=== PATIENT | male | born 1950 | race Caucasian/White ===

== ENCOUNTER 2017-02-21 12:08 | Inpatient (IN) | payer OTHER ==
[~2017-02-21] VITALS: Ht 198.1 cm; Wt 93.5 kg
[~2017-02-21 12:08] MED LIST: GABA-526 PO; METO50TA16 PO
[2017-02-21] MEDS ORDERED: DILTIAZEM 25 MG INJ IV STA (12:27)
[2017-02-21] MEDS ORDERED: DILTIAZEM-D5W 125MG/125ML DRIP 125 ML IV STA (12:27)
[2017-02-21] MEDS ORDERED: SOD CHLORIDE 0.9% 1,000 ML IV STA (12:46)
[2017-02-21] MEDS ORDERED: APIX5TAB PO (13:02)
[2017-02-21] MEDS ORDERED: AMIO200T2 PO (13:03)
[2017-02-21] MEDS ORDERED: ATOR20TA38 PO (13:03)
[2017-02-21] MEDS ORDERED: PANT40TA3 PO (13:03)
--- NOTE | 2017-02-21 13:03 | RADRPT ---
PROCEDURE: XR Chest. CLINICAL INDICATION: Chest pain. TECHNIQUE: Single frontal view. COMPARISON: None. FINDINGS: The lungs are clear. The heart size is normal. There is calcification in the aorta consistent with atherosclerosis. There is no pleural effusion. There is no pneumothorax. IMPRESSION: 1. Atherosclerosis. 2. Clear lungs. RPTAT: QQ .Carlos Conway MD, MD Date Time Electronically viewed and signed by .Carlos Conway MD, MD on 02/21/2017 13:02 .R/
[2017-02-21 13:08] LABS: ADD SCAN DIFF NO
[2017-02-21 13:13] LABS: BASOPHILS % 0.3 % (0.0-2.0); EOSINOPHILS # 0.3 10^3/ul (0.0-0.5); EOSINOPHILS % 2.6 % (0.0-7.0); HEMOGLOBIN 14.9 g/dl (14.0-18.0); LYMPHOCYTES # 2.3 10^3/ul (0.8-2.9); LYMPHOCYTES % 23.3 % (15.0-51.0); MEAN CORPUSCULAR HEMOGLOBIN 29.7 pg (29.0-33.0); MEAN CORPUSCULAR HGB CONC 33.9 g/dl (32.0-37.0); MEAN CORPUSCULAR VOLUME 87.6 fl (82.0-101.0); MONOCYTES % 10.1 % (0.0-11.0); NEUTROPHIL # 6.3 10^3/ul (1.6-7.5); NEUTROPHILS % 63.3 % (39.0-77.0); PLATELET COUNT 306 10^3/UL (140-415); RED BLOOD COUNT 5.02 10^6/ul (4.70-6.10); RED CELL DISTRIBUTION WIDTH 12.3 % (11.5-14.5)
[2017-02-21 13:23] LABS: ALANINE AMINOTRANSFERASE 32 IU/L (13-69); ALBUMIN 4.1 g/dl (3.3-4.9); ALKALINE PHOSPHATASE 75 IU/L (42-121); ANION GAP 12 (8-16); ASPARTATE AMINO TRANSFERASE 26 IU/L (15-46); BILIRUBIN,INDIRECT 0.6 mg/dl (0-1.1); BILIRUBIN,TOTAL 0.6 mg/dl (0.2-1.3); BLOOD UREA NITROGEN 15 mg/dl (7-20); CALCIUM 9.3 mg/dl (8.4-10.2); CARBON DIOXIDE 23 mmol/L (21-31); CHLORIDE 107 mmol/L (97-110); CREATINE KINASE 49 IU/L (23-200); CREATININE 1.05 mg/dl (0.61-1.24); GLUCOSE 132 mg/dl (70-220); POTASSIUM 4.2 mmol/L (3.5-5.1); SODIUM 138 mmol/L (135-144); TOTAL PROTEIN 7.5 g/dl (6.1-8.1)
[2017-02-21 13:31] LABS: INR 1.16; PROTIME 14.8 Sec (12.2-14.2); PT RATIO 1.2
[2017-02-21 13:32] LABS: PARTIAL THROMBOPLASTIN TIME 35.3 Sec (25.0-35.0)
[2017-02-21 13:35] LABS: B-TYPE NATRIURETIC PEPTIDE 190 PG/ML (0-125)
[2017-02-21 13:39] LABS: CK-MB 0.45 ng/ml (0.0-2.4); TROPONIN-I < 0.012 ng/ml (0.00-0.12)
--- NOTE | 2017-02-21 14:19 | ERA ---
ER Documentation Chief Complaint Date/Time DATE: 02/21/17 TIME: 14:12 Chief Complaint PALPITATIONS, SENT IN BY PCP FOR ASSESSMENT, HX OF AFIB HPI This is a 66-year-old male with a recent diagnosis of atrial fibrillation. The patient was discharged yesterday around 3 PM, roughly 24 hours prior to arrival from [facility] where he had stayed for 48 hours to be treated for atrial fibrillation with RVR. The patient had been placed on amiodarone drip during his stay according to his girlfriend. He has been discharged home with Eliquis and amiodarone. Just prior to arrival the patient stated he developed palpitations with no chest pain or pressure that radiated to the neck arm back or jaw. He took his blood pressure and heart rate at home and indicated he was normotensive and tachycardic with a heart rate of roughly 150. He had no associated symptoms of nausea vomiting or diaphoresis. He stated feel slightly lightheaded but denied a headache. He phoned his primary care physician Dr. Cox, instructed to come to the hospital immediately to be further evaluated. The patient denies any shortness of breath at rest or exertion. ROS All systems reviewed and are negative except as per history of present illness. Medications Home Meds Reported Medications Amiodarone Hcl* (Amiodarone Hcl*) 200 Mg Tablet, 400 MG PO BID, #60 TAB 02/21/17 Atorvastatin Calcium* (Atorvastatin Calcium*) 20 Mg Tablet, 20 MG PO QHS, #30 TAB 02/21/17 Pantoprazole* (Protonix*) 40 Mg Tablet.dr, 40 MG PO DAILY, TAB 02/21/17 Apixaban* (Eliquis*) 5 Mg Tablet, 10 MG PO DAILY, TAB 02/21/17 Gabapentin* (Gabapentin*) 600 Mg Tablet, 600 MG PO TID, TAB 09/10/15 Discontinued Reported Medications Metoprolol Succinate* (Toprol XL*) 50 Mg Tab.er.24h, 50 MG PO DAILY, TAB 09/10/15 Allergies Allergies: Uncoded Allergies: NARCOTICS (Allergy, Unknown, NAUSEA FOR 24 HRS, 09/10/15) PMhx/Soc Anesthesia Reaction: No Hx Neurological Disorder: Yes (TIA) Hx Respiratory Disorders: No Hx Psychiatric Problems: No Hx Miscellaneous Medical Probl: No Hx Alcohol Use: No Hx Substance Use: Yes (MJ) Hx Tobacco Use: Yes Smoking Status: Current some day smoker Physical Exam Vitals Vital Signs Date Time Temp Pulse Resp B/P Pulse Ox O2 Delivery O2 Flow Rate FiO2 02/21/17 13:26 Nasal Cannula 2 02/21/17 13:14 56 18 105/84 99 Room Air 02/21/17 12:10 97.9 70 18 118/70 98 Physical Exam Constitutional:Well-developed. Well-nourished. HEENT:Normocephalic. Atraumatic.Pupils were equal round reactive to light. Moist mucous membranes.No tonsillar exudates. Neck: No nuchal rigidity. No lymphadenopathy. No posterior cervical spine tenderness or step-offs. Respiratory: Not using accessory muscles of respiration.Lungs were clear to auscultation bilaterally. No rhonchi. No rales. No wheezing. Cardiovascular: Tachycardic with a irregular rhythm.No murmurs. No rubs were appreciated.S1, S2 normal. Distal pulses are palpable 2+ bilaterally. GI: Abdomen was soft. Nontender. Non Distended. No pulsatile abdominal masses or bruits. No rebound. No guarding. Bowel sounds were present and normal. Muscle skeletal: Full range of motion of both the upper and lower extremities bilaterally.Normal muscle tone.No assymetrical calf tenderness or swelling. Skin: No petechia, no purpura. No lesions on the palms or the soles of the feet. No maculopapular rash. NEURO: Patient was alert, awake, orientated x3.No facial droop. Gait observed and normal with no ataxia.Speech had regular rate and rhythm. No focal neurological deficits. Result Diagram: 02/21/17 1250 02/21/17 1250 Results 24 hrs Laboratory Tests Test 02/21/17 12:50 White Blood Count 10.010^3/ul Red Blood Count 5.0210^6/ul Hemoglobin 14.9g/dl Hematocrit 44.0% Mean Corpuscular Volume 87.6fl Mean Corpuscular Hemoglobin 29.7pg Mean Corpuscular Hemoglobin Concent 33.9g/dl Red Cell Distribution Width 12.3% Platelet Count 88150^3/UL Mean Platelet Volume 10.0fl Neutrophils % 63.3% Lymphocytes % 23.3% Monocytes % 10.1% Eosinophils % 2.6% Basophils % 0.3% Nucleated Red Blood Cells % 0.0/100WBC Neutrophils # 6.310^3/ul Lymphocytes # 2.310^3/ul Monocytes # 1.010^3/ul Eosinophils # 0.310^3/ul Basophils # 0.010^3/ul Nucleated Red Blood Cells # 0.010^3/ul Prothrombin Time 14.8Sec Prothrombin Time Ratio 1.2 INR International Normalized Ratio 1.16 Activated Partial Thromboplast Time 35.3Sec Sodium Level 138mmol/L Potassium Level 4.2mmol/L Chloride Level 107mmol/L Carbon Dioxide Level 23mmol/L Anion Gap 12 Blood Urea Nitrogen 15mg/dl Creatinine 1.05mg/dl Glucose Level 132mg/dl Calcium Level 9.3mg/dl Total Bilirubin 0.6mg/dl Direct Bilirubin 0.00mg/dl Indirect Bilirubin 0.6mg/dl Aspartate Amino Transf (AST/SGOT) 26IU/L Alanine Aminotransferase (ALT/SGPT) 32IU/L Alkaline Phosphatase 75IU/L Creatine Kinase 49IU/L Creatine Kinase Index 0.9 Creatinine Kinase MB (Mass) 0.45ng/ml Troponin I < 0.012ng/ml B-Type Natriuretic Peptide 190PG/ML Total Protein 7.5g/dl Albumin 4.1g/dl Globulin 3.40g/dl Albumin/Globulin Ratio 1.20 Current Medications Medications (Trade) Dose Ordered Sig/Feli Route PRN Reason Start Time Stop Time Status Last Admin Dose Admin Diltiazem HCl 20 mg 20 mg ONCE STAT IV 02/21/17 12:27 02/21/17 12:30 DC 02/21/17 12:50 Diltiazem HCl 125 ml @ 5 mls/hr ONCE STAT IV 02/21/17 12:27 02/22/17 13:26 02/21/17 12:49 Sodium Chloride (NS) 1,000 ml @ 1,000 mls/hr Q1H STAT IV 02/21/17 12:46 02/21/17 13:45 DC 02/21/17 12:51 Ondansetron HCl (Zofran Inj) 4 mg ER BRIDGE PRN IV NAUSEA AND/OR VOMITING 02/21/17 14:30 02/22/17 14:29 Acetaminophen (Tylenol Tab) 650 mg ER BRIDGE PRN PO MILD PAIN/FEVER 02/21/17 14:30 02/22/17 14:29 Departure Condition: Serious TREY ANGULO February 21, 2017 14:19
[2017-02-21] MEDS ORDERED: ONDANSETRON 4 MG INJ IV PRN (14:30)
[2017-02-21] MEDS ORDERED: ACETAMINOPHEN 325 MG TAB PO PRN ×2 (14:30→16:00)
[2017-02-21 15:45] VITALS: BP 116/73; PULSE 53; RESP 18
[2017-02-21 15:55] VITALS: Ht 198.1 cm; Wt 93.5 kg
[2017-02-21] MEDS ORDERED: MAGNESIUM HYDROXIDE 30ML CUP PO PRN (16:00)
[2017-02-21] MEDS ORDERED: ONDANSETRON 4 MG TAB PO PRN (16:00)
[2017-02-21] MEDS ORDERED: BISACODYL (EC) 5 MG TAB PO PRN (16:00)
[2017-02-21] MEDS ORDERED: NACL 0.9% 3 ML SYG IV SCH (16:00)
--- NOTE | 2017-02-21 16:38 | CONS ---
Date/Time of Note Date/Time of Note DATE: 02/21/17 TIME: 16:34 Assessment/Plan Assessment/Plan Additional Assessment/Plan Paroxysmal atrial fibrillation Mitral regurgitation History of CVA Multiple sclerosis -Patient with recurrent atrial fibrillation with rapid ventricular rates, converted back to sinus rhythm with IV Cardizem. Maintain potassium above 4.0 and magnesium above 2.0. Check thyroid function. Restart amiodarone, adjust dosing of Eliquis to 5 mg p.o. twice daily. Check echocardiogram to evaluate mitral valve given history of regurgitation as well as ejection fraction. Continue telemetry monitoring. Consultation Date/Type/Reason Admit Date/Time February 21, 2017 at 14:10 Type of Consultation: cv Reason for Consultation Palpitations Hx of Present Illness This is a 66-year-old male with past medical history of paroxysmal atrial fibrillation, mitral regurgitation, CVA, MS who presents with palpitations. Patient with known history of paroxysmal atrial fibrillation which was controlled with Toprol. He had recent palpitations that were severe. He went to [facility], he was started on amiodarone and had his Eliquis dose adjusted. He was discharged home yesterday but had recurrent palpitations earlier this morning. Palpitations are intermittent. He came to the emergency room and after medications, converted back to sinus rhythm. He has recently been started on amiodarone. He denies any current palpitations, dizziness, chest pain, lightheadedness. 12 point review of systems was performed with all pertinent positives and negatives mentioned above and all else is negative Past Medical History CVA Paroxysmal atrial fibrillation Mitral regurgitation Multiple sclerosis Family History Significant Family History: no pertinent family hx Social History Smoking Status: Never smoker Drug Use: other ( THC use) Exam/Review of Systems Vital Signs Vitals Vital Signs Date Time Temp Pulse Resp B/P Pulse Ox O2 Delivery O2 Flow Rate FiO2 02/21/17 15:45 97.6 53 18 116/73 99 Nasal Cannula 2.0 Exam No apparent distress Constitutional: alert, oriented Head: normocephalic Neck: supple Respiratory: clear to auscultation, normal air movement Cardiovascular: other (S1-S2 heard), regular rate and rhythm, systolic murmur Gastrointestinal: bowel sounds, non-tender, other (No guarding), soft Extremities: other (No edema or cyanosis) Results Result Diagram: 02/21/17 1250 02/21/17 1250 Results 24 hrs Laboratory Tests Test 02/21/17 12:50 White Blood Count 10.0 # Red Blood Count 5.02 Hemoglobin 14.9 Hematocrit 44.0 Mean Corpuscular Volume 87.6 Mean Corpuscular Hemoglobin 29.7 Mean Corpuscular Hemoglobin Concent 33.9 Red Cell Distribution Width 12.3 Platelet Count 306 Mean Platelet Volume 10.0 # Neutrophils % 63.3 Lymphocytes % 23.3 Monocytes % 10.1 Eosinophils % 2.6 Basophils % 0.3 Nucleated Red Blood Cells % 0.0 Neutrophils # 6.3 Lymphocytes # 2.3 Monocytes # 1.0 H Eosinophils # 0.3 Basophils # 0.0 Nucleated Red Blood Cells # 0.0 Prothrombin Time 14.8 H Prothrombin Time Ratio 1.2 INR International Normalized Ratio 1.16 Activated Partial Thromboplast Time 35.3 H Sodium Level 138 Potassium Level 4.2 Chloride Level 107 Carbon Dioxide Level 23 Anion Gap 12 Blood Urea Nitrogen 15 Creatinine 1.05 Glucose Level 132 Calcium Level 9.3 Total Bilirubin 0.6 Direct Bilirubin 0.00 Indirect Bilirubin 0.6 Aspartate Amino Transf (AST/SGOT) 26 Alanine Aminotransferase (ALT/SGPT) 32 Alkaline Phosphatase 75 Creatine Kinase 49 Creatine Kinase Index 0.9 Creatinine Kinase MB (Mass) 0.45 Troponin I < 0.012 B-Type Natriuretic Peptide 190 H Total Protein 7.5 Albumin 4.1 Globulin 3.40 H Albumin/Globulin Ratio 1.20 Medications Medications Current Medications Ondansetron HCl (Zofran Tab) 4 mg Q6H PRN PO NAUSEA AND/OR VOMITING; Start 02/21 at 16:00 Acetaminophen (Tylenol Tab) 650 mg Q6H PRN PO PAIN LEVEL 1-3 OR FEVER; Start at 16:00 Magnesium Hydroxide (Milk Of Mag) 30 ml DAILY PRN PO CONSTIPATION; Start at 16:00 Bisacodyl (Dulcolax) 5 mg DAILY PRN PO CONSTIPATION; Start 02/21/17 at 16:00 Amiodarone HCl (Cordarone) 400 mg BID PO ; Start 02/21/17 at 21:00 Apixaban (Eliquis) 10 mg DAILY PO ; Start 02/22/17 at 09:00 Atorvastatin Calcium (Lipitor) 20 mg QHS PO ; Start 02/21/17 at 21:00 Gabapentin (Neurontin) 600 mg TID PO ; Start 02/21/17 at 21:00 Pantoprazole (Protonix Tab) 40 mg DAILY@06 PO ; Start 02/22/17 at 06:00 Procedures Procedures ECG demonstrates atrial fibrillation with rapid ventricular rates in the 140s, QRS 86 ms, nonspecific STT wave abnormalities Preston Callahan DO February 21, 2017 16:38
[2017-02-21 16:39] VITALS: PULSE 53
--- NOTE | 2017-02-21 16:39 | HP ---
DATE OF ADMISSION: 02/21/2017 TIME OF EVALUATION: 1530. REASON FOR ADMISSION: Palpitations, sent in by primary care physician for further evaluation. CONSULTATIONS: Dr. Preston Callahan, Cardiology. HISTORY OF PRESENT ILLNESS: This is a 66-year-old male with past medical history of atrial fibrillation with rapid ventricular response, recently started on Eliquis, multiple sclerosis, and prior stroke. He came to the emergency room after he called his primary care physician because of complaints of palpitations. Apparently, the patient was discharged from [facility] on 02/20/2017 after he was hospitalized there for the same problem of atrial fibrillation with RVR. He was treated with amiodarone drip. Just prior to arrival to the emergency room, the patient started developing palpitations that started after he watered his lawn. The patient denied any chest pain. However, the patient was feeling dizzy. He checked his heart rate using a home diagnostic cardiac sonographer, and it was around 130s to 150s as per the patient. He denied any nausea, vomiting, or diaphoresis. He denied any other complaints. In the emergency room, the patient was noticed to be in atrial fibrillation. The patient was consequently started on a Cardizem drip with improvement in the patient's heart rate. The patient was also on treated with a single dose of IV fluid. PAST MEDICAL HISTORY: Atrial fibrillation, neuropathy, multiple sclerosis, CVA. PAST SURGICAL HISTORY: Surgery for undescended testes. HOME MEDICATIONS: 1. Amiodarone 400 mg p.o. b.i.d. 2. Lipitor 20 mg p.o. at bedtime. 3. Protonix 40 mg p.o. daily. 4. Eliquis 10 mg p.o. daily. 5. Gabapentin 600 mg p.o. t.i.d. ALLERGIES: OPIOIDS that make him nauseous for a prolonged period of time. SOCIAL HISTORY: The patient lives at home. Denies any history of tobacco use. Current someday alcohol abuser. Smokes marijuana. REVIEW OF SYSTEMS: A 12-point review of systems is negative other than what is mentioned in history of present illness. PHYSICAL EXAMINATION: VITAL SIGNS: Temperature 97.9, pulse 52, respiratory rate 18, blood pressure 111/71, oxygen saturation 99% on room air. GENERAL: This is a well-built, well-nourished male patient lying in bed in no apparent distress. HEENT: Head normocephalic and atraumatic. Eyes: Anicteric sclerae. Conjunctivae clear. ENT: Nasal septum is midline. Oral mucosa is moist. NECK: Supple. No JVD noticed. RESPIRATORY: Bilaterally clear to auscultation. No adventitious breath sounds. No use of accessory muscles of respiration. CARDIAC: Regular rate and rhythm. Systolic murmur. GASTROINTESTINAL: Abdomen is soft, nontender and nondistended. Bowel sounds positive in all 4 quadrants. GENITOURINARY: Deferred. EXTREMITIES: No cyanosis, no clubbing, no edema. Peripheral pulses are palpable. NEUROLOGIC: The patient is awake, alert and oriented. Cranial nerves are grossly intact. LABORATORY AND DIAGNOSTIC DATA: WBC 10.0, hemoglobin 14.9, hematocrit 44.0, platelet count 306. Sodium 130, potassium 4.0, chloride 107, carbon dioxide 23 , anion gap 12, BUN 15, creatinine 1.05. Glucose 132, calcium 9.3, AST 26, ALT 32, alkaline phosphatase 75. BNP 190. PT 14.8, INR 1.16, aPTT 35.3. Chest x-ray: Atherosclerosis. Clear lungs. IMPRESSION: This is a 66-year-old male with past medical history of atrial fibrillation, dyslipidemia, and neuropathy, who came to the emergency room with chief complaint of palpitations and was noticed to be in atrial fibrillation. He will be admitted here for further treatment and evaluation. ASSESSMENT AND PLAN: 1. Paroxysmal atrial fibrillation: The patient's heart rate has been controlled status-post Cardizem drip. The patient will be evaluated by cardiology. The patient will be resumed on Eliquis for stroke prophylaxis. Thyroid panel will be ordered. 2. Dyslipidemia: The patient will be continued on Lipitor. Fasting lipid panel will be obtained. The patient will be started on a low cholesterol diet. 3. Neuropathy: The patient will be resumed on gabapentin. 4. History of stroke. Will continue the patient on anticoagulation. Plan. The patient will be admitted to inpatient telemetry floor. The patient will be started on gastrointestinal prophylaxis with proton pump inhibitors. The patient will be anticoagulated with a factor Xa inhibitors for his underlying atrial fibrillation. Activities will be as tolerated. The patient will remain a FULL CODE. The rest of the patient's management will be based on clinical course, the results of diagnostic studies, and inputs from consultants. Based on the patient's clinical presentation, he most probably requires at least 1 midnight's stay for further management and evaluation of his clinical presentation. The case and management of this patient was fully discussed with Dr. Devlin. ODESSA DEVLIN MD, AM/OSMANI Conf#: [id number] DID#: [id number] MTDD
[2017-02-21 20:40] VITALS: BP 117/57; RESP 20
[2017-02-21] MEDS ORDERED: GABAPENTIN 300 MG CAP PO SCH (21:00)
[2017-02-21] MEDS ORDERED: APIXABAN 5 MG TABLET PO SCH (21:00)
[2017-02-21] MEDS ORDERED: AMIODARONE 200 MG TAB PO SCH (21:00)
[2017-02-21] MEDS ORDERED: ATORVASTATIN 20 MG TAB PO SCH (21:00)
[2017-02-22] MEDS ORDERED: PANTOPRAZOLE (EC) 40 MG TAB PO SCH (06:00)
[2017-02-22] MEDS ORDERED: APIXABAN 5 MG TABLET PO SCH (09:00)
--- NOTE | 2017-02-22 16:41 | DS ---
DATE OF ADMISSION: 02/21/2017 DATE OF DISCHARGE: 02/21/2017 The patient was admitted on 02/21/2017 at 1530 hours and discharged 02/21/2017 at 2020 hours (eloped). CONSULTANTS: Preston Callahan DO ADMITTED DIAGNOSES: 1. Paroxysmal atrial fibrillation. 2. Dyslipidemia. 3. Neuropathy. 4. History of stroke. HOSPITAL COURSE: This is a 66-year-old male with past medical history of atrial fibrillation with rapid ventricular response recently started on Eliquis , multiple sclerosis, and prior stroke. He came to the emergency room after he called his primary care physician because of complaints of palpitations. Apparently, the patient was discharged from [facility] on 02/20/2017 after he was hospitalized for the same problem of atrial fibrillation with RVR. The patient was treated with amiodarone drip at [facility]. Just prior to arrival to the emergency room at [facility], the patient started developing palpitations. He denied any chest pain. He was complaining of some dizziness. He checked his heart rate using the home filter cleaner that showed a rate around 130s to 150s. He called his primary care physician and he was instructed to come to the emergency room. In the emergency room at [facility], the patient was noticed to be in atrial fibrillation. Consequently, the patient was started on a Cardizem drip with improvement in the patient's underlying cardiac rhythm. Provided the patient's history of present illness, his comorbidities and the diagnostic findings, a clinical decision was made to admit the patient to inpatient setting to have him further evaluated. The patient was admitted to inpatient telemetry floor. Cardiology consult was obtained. Serial troponins were ordered. A 2D echocardiogram was ordered. Cardiology saw and evaluated the patient. On 02/21/2017 around 2015 hours, the patient was very upset, claiming that he did not get his Neurontin and he wanted to go home and get his Neurontin from home. The patient was instructed about the hospital policies. Meanwhile, the RN retrieved the patient's meds. By the time, the patient already left his room with all his personal belongings and with an IV in place. Hence, security was notified and [employer] was notified. No discharge planning was done since the patient eloped from the hospital. PERTINENT LABORATORY AND DIAGNOSTIC DATA: 1. CBC: WBC 10.0, hemoglobin 14.9, hematocrit 44.0, platelet count 306. 2. BMP: Sodium 138, potassium 4.2, chloride 107, carbon dioxide 23, anion gap 12, BUN 15, creatinine 1.05, glucose 132, calcium 9.3. At this time, I would like to thank Dr. Callahan for seeing the patient and providing clinical recommendations. The case and management of this patient was fully discussed with Dr. Devlin. ODESSA DEVLIN MD, AM/OSMANI Conf#: [id number] DID#: [id number] MTDD
[2017-02-25 15:52] LABS: TSH RECEPTOR ANTIBODY <1 (< OR = 16)
== END 2017-02-21 20:20 | disposition left against medical advice (07) | DRG 310 ==
LOC: E/R 12:08 → MS4 14:10
PROVIDERS: ADMIT Family Medicine; ATTEND Family Medicine
DX: I48.91 Unspecified atrial fibrillation (principal); G35 Multiple sclerosis; E78.5 Hyperlipidemia, unspecified; G62.9 Polyneuropathy, unspecified; Z86.73 Personal history of transient ischemic attack (TIA), and cerebral infarction without residual deficits
CPT/HCPCS: 71010; 80053; 82550; 82553; 83880; 84235; 84439; 84484; 85025; 85610; 85730; 87081; 93005; J7030